=== PATIENT | male | born 1995 | race Caucasian/White ===

== ENCOUNTER 2023-01-29 12:42 | Emergency (ER) | payer OTHER ==
[2023-01-29] MEDS ORDERED: Bacitracin Oint 1 GM U/D Packet TOP ONE (14:40)
== END 2023-01-29 15:05 | disposition home or self-care (01) ==
LOC: JP.ED 12:42
DX: S61.011A Laceration without foreign body of right thumb without damage to nail, initial encounter (principal); W26.8XXA Contact with other sharp object(s), not elsewhere classified, initial encounter; Y99.0 Civilian activity done for income or pay
CPT/HCPCS: 99282